=== PATIENT | male | born 1990 | race Caucasian/White ===

== ENCOUNTER 2019-12-04 13:47 | Emergency (ER) | payer BC, OTHER ==
[~2019-12-04] VITALS: Ht 180.3 cm; Wt 96.4 kg
[2019-12-04 13:50] VITALS: BP 105/65
[2019-12-04] MEDS ORDERED: SODIUM CHLORIDE 0.9% 1,000ML IVBOLUS ONE (14:00)
[2019-12-04] MEDS ORDERED: KETOROLAC 30 MG/1 ML IVPush ONE (14:00)
[2019-12-04] MEDS ORDERED: DIPHENHYDRAMINE 50 MG/ML, 1ML IVPush ONE (14:00)
[2019-12-04] MEDS ORDERED: METOCLOPRAMIDE 5 MG/ML, 2ML IVPush ONE (14:00)
[2019-12-04] MEDS ORDERED: METHOCARBAMOL 750 MG TABLET ONE (14:21)
[2019-12-04] MEDS ORDERED: KETOROLAC 30 MG/1 ML ONE (14:22)
[2019-12-04] MEDS ORDERED: METHOCARBAMOL 750 MG TABLET PO ONE (14:30)
[2019-12-04] MEDS ORDERED: KETOROLAC 30 MG/1 ML IM ONE (14:30)
== END 2019-12-04 15:18 | disposition home or self-care (01) ==
LOC: ED 14:55
DX: S39.012A Strain of muscle, fascia and tendon of lower back, initial encounter (principal); M51.16 Intervertebral disc disorders with radiculopathy, lumbar region; X58.XXXA Exposure to other specified factors, initial encounter; Y93.89 Activity, other specified; Y92.89 Other specified places as the place of occurrence of the external cause; Y99.8 Other external cause status
CPT/HCPCS: 72110; 73502; 96372; 99284; J1885